=== PATIENT | female | born 1945 | race Caucasian/White ===

== ENCOUNTER 2019-03-09 15:22 | Emergency (ER) | payer OTHER, BC ==
[~2019-03-09] VITALS: Ht 154.9 cm; Wt 90.7 kg
[2019-03-09 15:27] VITALS: BP_SYST 140
--- NOTE | 2019-03-09 15:39 | NUR ---
Patient triaged and placed in waiting room. VSS and patient appears in no acute distress at this time. Accompanied by self, awaiting available bed, and MD notified of need for MSE.
--- NOTE | 2019-03-09 16:24 | NUR ---
Called from waiting room, no answer.
--- NOTE | 2019-03-09 17:02 | NUR ---
Patient to ER bed 04 for evaluation. Side rails up. Report given to Shady ANN.
--- NOTE | 2019-03-09 17:05 | NUR ---
ER Dr. Doe at bedside examining patient.
[2019-03-09 17:35] LABS: BASOPHILS % (AUTO) 0.6 % (0.0-2.0); EOSINOPHILS # (AUTO) 0.1 K/uL (0.0-0.4); EOSINOPHILS % (AUTO) 1.8 % (0.0-4.0); HEMATOCRIT 43.4 % (36-48); HEMOGLOBIN 14.4 g/dL (12.0-16.0); LYMPHOCYTES # (AUTO) 1.2 K/uL (1.0-5.5); LYMPHOCYTES % (AUTO) 16.5 % (20.5-51.5); MEAN CORPUSCULAR HEMOGLOBIN 29 pg (27-31); MEAN CORPUSCULAR HGB CONC 33 % (32-36); MEAN CORPUSCULAR VOLUME 89 fL (79.0-98.0); MONOCYTES # (AUTO) 0.3 K/uL (0.0-1.0); MONOCYTES % (AUTO) 4.3 % (1.7-9.3); NEUTROPHILS # (AUTO) 5.8 K/uL (1.8-7.7); NEUTROPHILS % (AUTO) 76.8 % (40.0-70.0); PLATELET COUNT (AUTO) 224 K/uL (130-430); RED CELL DISTRIBUTION WIDTH 13.6 % (9.0-15.0); WHITE BLOOD COUNT (AUTO) 7.6 K/uL (4.8-10.8)
[2019-03-09 18:09] LABS: ANION GAP 8 (5-15); CALCIUM 9.3 mg/dL (8.4-11.0); CHLORIDE 104 mmol/L (98-107); CREATININE 1.01 mg/dL (0.55-1.30); GLUCOSE 108 mg/dL (70-99); POTASSIUM 3.8 mmol/L (3.5-5.1); SODIUM SERUM 141 mmol/L (136-145); UREA NITROGEN, BLOOD 27 mg/dL (8-21)
[2019-03-09 18:15] LABS: ALANINE AMINOTRANSFERASE 22 U/L (12-78); ASPARTATE AMINOTRANSFERASE 16 U/L (10-37); TOTAL BILIRUBIN 0.4 mg/dL (0.0-1.0)
--- NOTE | 2019-03-09 18:50 | NUR ---
Patient given written and verbal discharge instructions and verbalizes understanding. ER MD Doe discussed with patient the results and treatment provided. Patient in stable condition. ID arm band removed. Rx of Clindamycin, [place] given. Patient educated on pain management and to follow up with PMD. Pain Scale 0. Opportunity for questions provided and answered. Medication side effect fact sheet provided.
[2019-03-09 18:52] VITALS: BP_SYST 134
== END 2019-03-09 18:52 | disposition home or self-care (01) ==
LOC: SED 15:22
DX: L03.115 Cellulitis of right lower limb (principal)
CPT/HCPCS: 36415; 73590-TC; 80053; 85025; 86140; 93971; 99284

== ENCOUNTER 2019-04-09 19:09 | Emergency (ER) | payer OTHER, BC ==
[~2019-04-09] VITALS: Ht 154.9 cm; Wt 90.7 kg
[2019-04-09 19:55] VITALS: BP_SYST 128
--- NOTE | 2019-04-09 21:00 | NUR ---
Patient to ER bed H1 to gown for evaluation. Side rails up.
--- NOTE | 2019-04-09 21:10 | NUR ---
Dr Mcmillan at bedside examining patient
--- NOTE | 2019-04-09 21:30 | NUR ---
Pt brought by family member, A&O x4 , pt presents to ER with lower back pain, pt denies trauma, skin pink and warm, cap refill <3, VSS, respirations even and unlabored, pt ambulates with difficulty.
[2019-04-09] MEDS ORDERED: KETOROLAC TROMETHAMINE 60 MG/2 ML VIAL IM ONE (21:45)
[2019-04-09] MEDS ORDERED: MORPHINE 4 MG/ML INJ. SYRINGE IVP ONE (22:15)
[2019-04-09] MEDS ORDERED: NACL 0.9% 1,000 ML IV ONE (22:15)
[2019-04-09] MEDS ORDERED: ONDANSETRON HCL 4 MG/2 ML VIAL IVP ONE (22:15)
--- NOTE | 2019-04-09 22:25 | NUR ---
Patient does not wish to proceed with medical care recommended by Dr Mcmillan . Patient given information related to possible complications, up to and including , which could occur as a result of leaving hospital at this time. Patient verbalizes understanding of risks involved leaving against medical advice. Patient has signed AMA form.
[2019-04-09] MEDS ORDERED: MORPHINE 4 MG/ML INJ. SYRINGE IM ONE (22:30)
== END 2019-04-09 22:58 | disposition left against medical advice (07) ==
LOC: SED 19:09 → UNDOADMIN 22:07 → SMU 22:07
DX: S32.049A Unspecified fracture of fourth lumbar vertebra, initial encounter for closed fracture (principal); X58.XXXA Exposure to other specified factors, initial encounter; Y93.89 Activity, other specified; Y92.89 Other specified places as the place of occurrence of the external cause; Y99.8 Other external cause status
CPT/HCPCS: 72131; 96372; 99284; J1885